=== PATIENT | male | born 1945 | race Caucasian/White ===

== ENCOUNTER → 2017-04-05 | Day surgery (SDC) | payer BC ==
[2017-03-29 11:25] VITALS: BMI 26.0
[~2017-04-05] VITALS: Ht 177.8 cm; Wt 81.8 kg
[~2017-04-05] MED LIST: B-COTAB18 PO; FINA5TAB PO; LIDOCAINE HCL 2% 2 ML VIAL (20MG/ML) ONE; LOSA25TA18 PO; MIDAZOLAM HCL 1 MG/ML 2ML VIAL ONE; MULT-610 PO; PRLSR20 PO; PROPOFOL IV EMULSION 10 MG/ML 20 ML VIAL IV ONE; RANI150T3 PO; VTMD1000 PO
[2017-04-05 09:34] VITALS: Ht 177.8 cm; Wt 81.8 kg
--- NOTE | 2017-04-05 09:35 | Endo History and Physical ---
History & Physical Date of Service: April 05, 2017. Chief Complaint: Meier's Esophagus Referring Physician: Dr. Sanchez History of Present Illness 71 yo CM who presents for EGD secondary to Meier's Esophagus. Past Medical History Reflux, Cancer, Hypertension Past Surgical History Hx Cardiac Surgery: No Hx Internal Defibrillator: No Hx Pacemaker: No Hx Abdominal Surgery: No Hx of Implantable Prosthesis: No Hx Post-Op Nausea and Vomiting: No Hx Cancer Surgery: Yes (MOHS ON CHEEK, BCC ON NECK EXCISION) Hx Thoracic Surgery: No Hx Orthopedic: No Hx Urinary Tract Surgery: No Family History None Social History Smoking Status: Former Smoker Hx Substance Use: No Hx Alcohol Use: Yes ("SOCIALLY") Allergies Coded Allergies: Erythromycin (Verified Allergy, Unknown, SWOLLEN LIVER, 04/05/17) Milk (Verified Allergy, Unknown, LACTOSE INTOLERANT, 04/05/17) Current Medications Reported Home Medications Medications Dose Route/Sig Max Daily Dose Days Date Category Vitamin B Complex (B-Complex Vitamins) 1 Tab Tab 1 Tab PO QAM 03/29/17 Reported Vitamin D3 (Cholecalciferol) 1,000 Inter.unit Tab 1 Tab PO QAM 03/29/17 Reported Centrum Adults (Multiple Vitamins W/ Minerals) 1 Tab Tab 1 Tab PO QAM 03/29/17 Reported Cozaar (Losartan Potassium) 25 Mg Tab 25 Mg PO QAM 03/29/17 Reported Prilosec (Omeprazole) 20 Mg Capcr 40 Mg PO QAM 03/29/17 Reported Proscar (Finasteride) 5 Mg Tab 5 Mg PO QAM 03/29/17 Reported Vital Signs Weight (Kilograms): 81.82 Height (Feet): 5 Height (Inches): 10 Physical Exam General Appearance: WD/WN, no apparent distress Respiratory/Chest: Auscultation: breath sounds normal Cardiovascular: Heart Auscultation: RRR Abdomen: Bowel Sounds: normal Inspection & Palpation: soft, non-distended, no tenderness, guarding & rebound Assessment and Plan Assessment: 71 yo CM who presents for EGD secondary to Meier's Esophagus. Plan: Proceed with EGD
[2017-04-05 09:46] VITALS: TEMP 36.5
--- NOTE | 2017-04-05 10:14 | Discharge Instructions ---
Endoscopy Patient Instructions Date / Procedure(s) Performed April 05, 2017. Allergy Information Coded Allergies: Erythromycin (Verified Allergy, Unknown, SWOLLEN LIVER, 04/05/17) Milk (Verified Allergy, Unknown, LACTOSE INTOLERANT, 04/05/17) Discharge Date / Findings April 05, 2017. Meier's esophagus s/p biopsies Medication Instructions OK to resume all medications today as prescribed Reported Home Medications Medications Dose Route/Sig Max Daily Dose Days Date Category Vitamin B Complex (B-Complex Vitamins) 1 Tab Tab 1 Tab PO QAM 03/29/17 Reported Vitamin D3 (Cholecalciferol) 1,000 Inter.unit Tab 1 Tab PO QAM 03/29/17 Reported Centrum Adults (Multiple Vitamins W/ Minerals) 1 Tab Tab 1 Tab PO QAM 03/29/17 Reported Cozaar (Losartan Potassium) 25 Mg Tab 25 Mg PO QAM 03/29/17 Reported Prilosec (Omeprazole) 20 Mg Capcr 40 Mg PO QAM 03/29/17 Reported Proscar (Finasteride) 5 Mg Tab 5 Mg PO QAM 03/29/17 Reported Provider Instructions Activity Restrictions - No exercising or heavy lifting for 24 hours. - Do not drink alcohol the day of the procedure. - Do not drive a car or operate machinery until the day after the procedure. - Do not make any important decisions or sign important papers in 24 hours after the procedure. Following Day: - Return to full activity which may include returning to work/school. Diet Start your diet with liquids and light foods (jello, soup, juice, toast). Then eat your usual diet if not nauseated. Treatment For Common After Affects For mild abdominal pain, bloating, or excessive gas: - Rest - Eat lightly - Lie on right side Follow-Up Information Follow-up with Dr. Sanchze as scheduled Anesthesia Information What You Should Know You have had a procedure that required some medicine to reduce anxiety and discomfort. This treatment is called moderate sedation. After receiving the treatment, you may be sleepy, but you will be able to breathe on your own. The effects of the treatment may last for several hours. Follow these instructions along with Activity/Diet recommendations noted above: * Do NOT do anything where dizziness or clumsiness would be dangerous. * Rest quietly at home today, then you can be up and about tomorrow. * Have a responsible person stay with you the rest of today. * You may have had an I.V. today. If so, you may take the dressing off later today. Recommendations Call your doctor if: * Trouble breathing * Continuous vomiting for more than 24 hours * Temperature above 101 degrees * Severe abdominal pain or bloating * Pain not relieved by pain medicine ordered * There is increased drainage or redness from any incision * A large amount of rectal bleeding greater than 2-3 tablespoons. (If you had a polyp/s removed or have hemorrhoids, a small amount of blood - from the rectum is to be expected.) * You have any unanswered questions or concerns. IN THE EVENT OF A SERIOUS EMERGENCY, GO TO THE NEAREST EMERGENCY ROOM Your discharge instructions were prepared by provider Issa Ortiz. Patient Instructions Signature Page Wai Aleman Patient (or Guardian) Signature/Date: I have read and understand the instructions given to me by my caregivers. Caregiver/RN/Doctor Signature/Date: The above-named patient and/or guardian has received patient instructions on this date. + Original Patient Signature Page (only) stays with chart. Please make copy for patient.
--- NOTE | 2017-04-05 10:21 | GI REPORT ---
Procedure Date: 04/05/2017 9:55 AM Procedure: Upper GI endoscopy Indications: Suspected Meier's esophagus Medicines: Monitored Anesthesia Care Complications: No immediate complications. Estimated Blood Loss: Estimated blood loss: none. Procedure: Pre-Anesthesia Assessment: - Prior to the procedure, a History and Physical was performed, and patient medications and allergies were reviewed. The patient's tolerance of previous anesthesia was also reviewed. The risks and benefits of the procedure and the sedation options and risks were discussed with the patient. All questions were answered, and informed consent was obtained. Prior Anticoagulants: The patient has taken no previous anticoagulant or antiplatelet agents. ASA Grade Assessment: II - A patient with mild systemic disease. After reviewing the risks and benefits, the patient was deemed in satisfactory condition to undergo the procedure. After obtaining informed consent, the endoscope was passed under direct vision. Throughout the procedure, the patient's blood pressure, pulse, and oxygen saturations were monitored continuously. The scope was introduced through the mouth, and advanced to the second part of duodenum. The upper GI endoscopy was accomplished without difficulty. The patient tolerated the procedure well. Findings: There were esophageal mucosal changes suspicious for short-segment Meier's esophagus present at the gastroesophageal junction. The maximum longitudinal extent of these mucosal changes was 2 cm in length. Mucosa was biopsied with a cold forceps for histology. One specimen bottle was sent to pathology. The stomach was normal. The examined duodenum was normal. Impression: - Esophageal mucosal changes suspicious for short-segment Meier's esophagus. Biopsied. - Normal stomach. - Normal examined duodenum. Recommendation: - Resume previous diet. - Continue present medications. - Await pathology results. - Return to primary care physician as previously scheduled. Issa Ortiz, DO 04/05/2017 10:20:20 AM This report has been signed electronically. Note Initiated On: 04/05/2017 9:55 AM I attest to the content of the Intraoperative Record and orders documented therein, exceptions below
[2017-04-05 10:36] VITALS: BP 152/86; PULSE 65; O2SAT 97
--- NOTE | 2017-04-05 11:36 | Anesthesiology Progress Note ---
Anesthesia Post Op Note Date & Time April 05, 2017 at 11:36 Vital Signs Pain Intensity: 0 Vital Signs Past 12 Hours Date Time Temp Pulse Resp B/P Pulse Ox O2 Delivery O2 Flow Rate FiO2 04/05/17 10:36 65 18 152/86 97 Room Air 04/05/17 10:25 69 18 137/83 95 Room Air 04/05/17 10:12 76 18 121/83 96 Room Air 04/05/17 09:46 36.5 75 20 187/94 97 Room Air Notes Mental Status: alert / awake / arousable, participated in evaluation Pt Amnestic to Procedure: Yes Nausea / Vomiting: adequately controlled Pain: adequately controlled Airway Patency, RR, SpO2: stable & adequate BP & HR: stable & adequate Hydration State: stable & adequate Anesthetic Complications: no major complications apparent
== END | disposition home or self-care (01) ==
LOC: C.GI 09:14
PROVIDERS: ATTEND Internal Medicine
DX: K22.70 Barrett's esophagus without dysplasia (principal); K21.9 Gastro-esophageal reflux disease without esophagitis; I10 Essential (primary) hypertension; Z87.891 Personal history of nicotine dependence; Z85.828 Personal history of other malignant neoplasm of skin; Z79.899 Other long term (current) drug therapy

== ENCOUNTER 2017-07-01 12:30 | Emergency (ER) | payer BC ==
[~2017-07-01 12:30] MED LIST changes: -LIDOCAINE HCL 2% 2 ML VIAL (20MG/ML) ONE; -MIDAZOLAM HCL 1 MG/ML 2ML VIAL ONE; -PROPOFOL IV EMULSION 10 MG/ML 20 ML VIAL IV ONE; -RANI150T3 PO
[2017-07-01 12:35] VITALS: O2SAT 100
[2017-07-01] MEDS ORDERED: RANI150T3 PO (12:58)
[2017-07-01 13:00] LABS: ISTAT CREATININE 1.5 mg/dl (0.6-1.3); ISTAT HEMOGLOBIN 12.2 g/dl (14.0-18.0); ISTAT IONIZED CALCIUM 1.18 mmol/l (1.12-1.32)
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
[2017-07-01 13:05] VITALS: BP 145/80; PULSE 81; O2SAT 99
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
== END 2017-07-01 13:07 | disposition short-term general hospital (02) ==
LOC: EDBD 12:30 → C.EDB 12:31
DX: S31.109A Unspecified open wound of abdominal wall, unspecified quadrant without penetration into peritoneal cavity, initial encounter (principal); W34.00XA Accidental discharge from unspecified firearms or gun, initial encounter; Y92.019 Unspecified place in single-family (private) house as the place of occurrence of the external cause; K22.70 Barrett's esophagus without dysplasia; K21.9 Gastro-esophageal reflux disease without esophagitis; I10 Essential (primary) hypertension; Z87.891 Personal history of nicotine dependence; Z79.899 Other long term (current) drug therapy

== ENCOUNTER 2018-02-19 12:14 | Emergency (ER) | payer BC ==
[~2018-02-19] VITALS: Ht 177.8 cm; Wt 81.3 kg
[~2018-02-19 12:14] MED LIST changes: -PRLSR20 PO
[2018-02-19 12:18] VITALS: TEMP 36.5; Ht 177.8 cm; Wt 81.3 kg
[2018-02-19] MEDS ORDERED: RANI150T3 PO (12:58)
[2018-02-19] MEDS ORDERED: SODIUM CHLORIDE 0.9% 1000ML 1,000 ML IV STA (13:26)
[2018-02-19] MEDS ORDERED: SODIUM CHLORIDE 0.9% 1000ML 1,000 ML IV ONE (13:26)
[2018-02-19 13:51] LABS: BASO % 0.9 %; BASO ABS # 0.08 K/uL (0-0.2); EOS % 2.1 %; HEMATOCRIT 40.6 % (42-52); HEMOGLOBIN 14.1 g/dL (14.0-18.0); IG# 0.02 K/uL (0.00-0.02); LYMPH ABS # 2.43 K/uL (1.2-3.4); MEAN CELL VOLUME 95.5 fL (80-100); MEAN CORPUSCULAR HEMOGLOBIN 33.2 pg (25-34); MEAN CORPUSCULAR HGB CONC 34.7 g/dl (32-36); MEAN PLATELET VOLUME 10.5 fL (7.4-10.4); MONO % 14.2 %; MONO ABS # 1.33 K/uL (0.11-0.59); NEUT % 56.6 %; NEUT ABS # 5.29 K/uL (1.4-6.5); PLATELET COUNT 283 K/uL (130-400); RED CELL DISTRIBUTION WIDTH CV 14.1 % (11.5-14.5); RED CELL DISTRIBUTION WIDTH SD 48.9 fL (36.4-46.3); WHITE BLOOD COUNT 9.35 K/uL (4.8-10.8)
[2018-02-19 14:02] LABS: PTT PATIENT 25.7 SECONDS (21.0-31.0)
[2018-02-19 14:06] LABS: ALBUMIN 4.3 gm/dl (3.4-5.0); CALCIUM 9.5 mg/dl (8.5-10.1); CREATININE 1.32 mg/dl (0.60-1.40); POTASSIUM 3.7 mmol/L (3.5-5.1)
[2018-02-19 14:09] LABS: TOTAL PROTEIN 8.3 gm/dl (6.4-8.2)
--- NOTE | 2018-02-19 14:09 | DIAGNOSTIC IMAGING REPORT ---
CHEST ONE VIEW PORTABLE CLINICAL HISTORY: CHEST PAIN hypertension COMPARISON STUDY: 07/01/2017 FINDINGS: The bones soft tissues and hemidiaphragms are normal. The cardiomediastinal silhouette is normal. The lungs are clear. The pulmonary vasculature is normal. IMPRESSION: Negative chest. The above report was generated using voice recognition software. It may contain grammatical, syntax or spelling errors. Electronically signed by: Arden Morales M.D. 02/19/2018 2:08 PM Dictated Date/Time: 02/19/2018 2:08 PM
--- NOTE | 2018-02-19 14:15 | DIAGNOSTIC IMAGING REPORT ---
CT SCAN OF THE BRAIN WITHOUT IV CONTRAST CLINICAL HISTORY: Headache. COMPARISON STUDY: No priors. TECHNIQUE: Unenhanced axial CT scan of the brain is performed from the vertex to the skull base. A dose lowering technique was utilized adhering to the principles of ALARA. CT DOSE: 614.27 mGy.cm FINDINGS: Brain parenchyma: There are age-related involutional changes noting mild subcortical and periventricular microangiopathic change. There is no hemorrhage, mass effect, or evidence of acute territorial ischemia by CT criteria. Ornelas-white matter is preserved. No extra-axial fluid collection is seen. Ventricles, sulci, cisterns: Prominent secondary to involutional change. Intracranial vasculature: There is mild atherosclerotic calcification of the cavernous carotid arteries. Calvarium: Unremarkable. Sinuses and mastoids: The visualized paranasal sinuses are clear. The mastoid air cells are well pneumatized. Orbits: The bony orbits are grossly intact. IMPRESSION: There is no hemorrhage, mass effect, or evidence of acute territorial ischemia by CT criteria. Electronically signed by: Brice Concepcion M.D. 02/19/2018 2:14 PM Dictated Date/Time: 02/19/2018 2:12 PM
[2018-02-19] MEDS ORDERED: PRLSR20 PO (14:32)
[2018-02-19 16:16] VITALS: BP 173/95; PULSE 77; O2SAT 96
--- NOTE | 2018-02-19 18:47 | EMERGENCY ROOM VISIT NOTE ---
History Report prepared by Zo: Peter Toledo Under the Supervision of: Dr. Sage Perry M.D. First contact with patient: 13:17 Chief Complaint: HYPERTENSION Stated Complaint: HIGH BLOOD PRESSURE History of Present Illness The patient is a 72 year old male who presents to the Emergency Room with complaints of a headache that woke hip up in the middle of the night this morning, several hours ago. He also complains of a persistent cough for the past week. He can feel his nose draining down the back of his throat and his throat was sore this morning. The patient mentioned that he visited with another physician who found his blood pressure to be hypertensive as well. He did not take his blood pressure medication this morning. The added that he was complaining of nausea as well, which is why he did not take the blood pressure pill. His headache was worsened by light. Source of History: patient Onset: Several hours ago Position: head Quality: other (KNOWLES) Modifying Factors (Worsening): other (Light sensitivity) Associated Symptoms: + sorethroat, + cough Review of Systems See HPI for pertinent positives & negatives. A total of 10 systems reviewed and were otherwise negative. 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 Nurse's notes were reviewed and I agree with. Family History Omitted secondary to age. Social History Smoking Status: Never Smoker Drug Use: none Marital Status: Housing Status: lives with significant other Occupation Status: retired Current/Historical Medications Scheduled B-Complex Vitamins (Vitamin B Complex), 1 TAB PO QAM Cholecalciferol (Vitamin D3), 1 TAB PO QAM Finasteride (Proscar), 5 MG PO QAM Losartan Potassium (Cozaar), 25 MG PO QAM Multiple Vitamins W/ Minerals (Centrum Adults), 1 TAB PO QAM Omeprazole (Prilosec), 20 MG PO DAILY Scheduled PRN Ranitidine Hcl (Zantac), 150 MG PO BID PRN for heartburn Allergies Coded Allergies: Erythromycin (Verified Allergy, Unknown, SWOLLEN LIVER, 02/19/18) Milk (Verified Allergy, Unknown, LACTOSE INTOLERANT, 02/19/18) Physical Exam Vital Signs Date Time Temp Pulse Resp B/P (MAP) Pulse Ox O2 Delivery O2 Flow Rate FiO2 02/19/18 16:16 77 18 173/95 96 Room Air 02/19/18 14:39 81 18 186/104 96 Room Air 02/19/18 13:12 83 20 180/103 97 Room Air 02/19/18 12:18 36.5 85 18 221/99 99 Room Air Physical Exam General: Non-ill appearing older male in no acute distress. HEENT: Normal cephalic atraumatic. Pupils are equal round and reactive to light. Extraocular movements are intact. Oropharynx is pink with moist mucous membranes. No swelling of the mouth lips or tongue. Neck: Supple with a midline trachea. No meningeal signs or stiffness, no JVD or bruits. No Stridor. Chest: Clear to auscultation bilaterally. No wheezes or rhonchi. No increased work of breathing. Heart: regular rate and rhythm. Abdomen: Soft nontender, nondistended without rebound guarding or rigidity. Extremities: No cyanosis clubbing or edema. No calf tenderness or assymetry Spine/Back. Non tender to palpation. No CVA tenderness Skin: Good turgor without rashes. Neurologic exam: Cranial nerves two through 12 are intact. Motor and sensation are intact and symmetrical throughout. Medical Decision & Procedures ER Provider Diagnostic Interpretation: Radiology results as stated below per my review and radiologist interpretation: CHEST ONE VIEW PORTABLE CLINICAL HISTORY: CHEST PAIN hypertension COMPARISON STUDY: 07/01/2017 FINDINGS: The bones soft tissues and hemidiaphragms are normal. The cardiomediastinal silhouette is normal. The lungs are clear. The pulmonary vasculature is normal. IMPRESSION: Negative chest. The above report was generated using voice recognition software. It may contain grammatical, syntax or spelling errors. Electronically signed by: Arden Morales M.D. 02/19/2018 2:08 PM Dictated Date/Time: 02/19/2018 2:[address] SCAN OF THE BRAIN WITHOUT IV CONTRAST CLINICAL HISTORY: Headache. COMPARISON STUDY: No priors. TECHNIQUE: Unenhanced axial CT scan of the brain is performed from the vertex to the skull base. A dose lowering technique was utilized adhering to the principles of ALARA. CT DOSE: 614.27 mGy.cm FINDINGS: Brain parenchyma: There are age-related involutional changes noting mild subcortical and periventricular microangiopathic change. There is no hemorrhage, mass effect, or evidence of acute territorial ischemia by CT criteria. Ornelas-white matter is preserved. No extra-axial fluid collection is seen. Ventricles, sulci, cisterns: Prominent secondary to involutional change. Intracranial vasculature: There is mild atherosclerotic calcification of the cavernous carotid arteries. Calvarium: Unremarkable. Sinuses and mastoids: The visualized paranasal sinuses are clear. The mastoid air cells are well pneumatized. Orbits: The bony orbits are grossly intact. IMPRESSION: There is no hemorrhage, mass effect, or evidence of acute territorial ischemia by CT criteria. Electronically signed by: Brice Concepcion M.D. 02/19/2018 2:14 PM Dictated Date/Time: 02/19/2018 2:12 PM Laboratory Results 02/19/18 13:34 Red Blood Count 4.25, Mean Corpuscular Volume 95.5, Mean Corpuscular Hemoglobin 33.2, Mean Corpuscular Hemoglobin Concent 34.7, Mean Platelet Volume 10.5, Neutrophils (%) (Auto) 56.6, Lymphocytes (%) (Auto) 26.0, Monocytes (%) (Auto) 14.2, Eosinophils (%) (Auto) 2.1, Basophils (%) (Auto) 0.9, Neutrophils # (Auto ) 5.29, Lymphocytes # (Auto) 2.43, Monocytes # (Auto) 1.33, Eosinophils # (Auto ) 0.20, Basophils # (Auto) 0.08 02/19/18 13:34 Test 02/19/18 13:34 White Blood Count 9.35 K/uL (4.8-10.8) Red Blood Count 4.25 M/uL (4.7-6.1) Hemoglobin 14.1 g/dL (14.0-18.0) Hematocrit 40.6 % (42-52) Mean Corpuscular Volume 95.5 fL (80-100) Mean Corpuscular Hemoglobin 33.2 pg (25-34) Mean Corpuscular Hemoglobin Concent 34.7 g/dl (32-36) Platelet Count 283 K/uL (130-400) Mean Platelet Volume 10.5 fL (7.4-10.4) Neutrophils (%) (Auto) 56.6 % Lymphocytes (%) (Auto) 26.0 % Monocytes (%) (Auto) 14.2 % Eosinophils (%) (Auto) 2.1 % Basophils (%) (Auto) 0.9 % Neutrophils # (Auto) 5.29 K/uL (1.4-6.5) Lymphocytes # (Auto) 2.43 K/uL (1.2-3.4) Monocytes # (Auto) 1.33 K/uL (0.11-0.59) Eosinophils # (Auto) 0.20 K/uL (0-0.5) Basophils # (Auto) 0.08 K/uL (0-0.2) RDW Standard Deviation 48.9 fL (36.4-46.3) RDW Coefficient of Variation 14.1 % (11.5-14.5) Immature Granulocyte % (Auto) 0.2 % Immature Granulocyte # (Auto) 0.02 K/uL (0.00-0.02) Prothrombin Time 10.7 SECONDS (9.0-12.0) Prothromb Time International Ratio 1.0 (0.9-1.1) Activated Partial Thromboplast Time 25.7 SECONDS (21.0-31.0) Partial Thromboplastin Ratio 1.0 Anion Gap 7.0 mmol/L (3-11) Est Creatinine Clear Calc Drug Dose 53.0 ml/min Estimated GFR () 62.5 Estimated GFR (Non- 53.9 BUN/Creatinine Ratio 14.9 (10-20) Calcium Level 9.5 mg/dl (8.5-10.1) Total Bilirubin 1.1 mg/dl (0.2-1) Direct Bilirubin 0.2 mg/dl (0-0.2) Aspartate Amino Transf (AST/SGOT) 21 U/L (15-37) Alanine Aminotransferase (ALT/SGPT) 18 U/L (12-78) Alkaline Phosphatase 117 U/L (45-117) Total Protein 8.3 gm/dl (6.4-8.2) Albumin 4.3 gm/dl (3.4-5.0) Lipase 78 U/L (73-393) Laboratory studies as stated above per my review. Medications Administered Medications (Trade) Dose Ordered Sig/Gabrielle Route Start Time Stop Time Status Last Admin Dose Admin Sodium Chloride 1,000 ml @ 999 mls/hr Q1H1M STAT IV 02/19/18 13:26 02/19/18 14:26 DC 02/19/18 13:57 999 MLS/HR ECG Per My Interpretation Rate (beats per minute): 79 Rhythm: normal sinus Findings: other (No MELANI/STD, No PVCs) Comparison ECG Date: 07/15/2010 Change: no significant change ED Course 1318: Past medical records reviewed. The patient was evaluated in room C11B, and a complete history and physical examination were performed. 1326: Ordered Sodium Chloride 1000 mL @ 150 mL/hr IV, Sodium Chloride 1000 mL @ 999 mL/hr IV. 1617: Upon reevaluation, the patient is resting in bed. I discussed the results and treatment plan with him and his family. They verbalized agreement of the treatment plan. The patient was discharged home. Medical Decision Differential diagnosis includes; hypertension, CVA, intracranial hemorrhage, electrolyte or metabolic abnormality. This patient comes in as described above. He was placed in room C 11. he had a bad headache last night .he is asymptomatic at present. he did not yet take his blood pressure medicine today. He's had no chest pain or shortness of breath. He looks well and has no complaints at present EKG was obtained shows no acute ischemic changes. He has no electrolyte or metabolic abnormality is nothing to suggest infection. I get a CAT scan of his head is unremarkable. His blood pressure is trending downward to the 180 systolic. he has not yet taken his medications. he can take this when he gets home. He should check his blood pressure frequently and follow-up with his doctor this week for recheck return if: Worsening of symptoms, numbness or weakness, fever orchills, any new problems or concerns. He is happy to plan and discharged to home. Medication Reconcilliation Current Medication List: was personally reviewed by me Blood Pressure Screening Patient's blood pressure: Elevated blood pressure Blood pressure disposition: Referred to PCP Impression Primary Impression: Headache Additional Impression: Hypertension Scribe Attestation The scribe's documentation has been prepared under my direction and personally reviewed by me in its entirety. I confirm that the note above accurately reflects all work, treatment, procedures, and medical decision making performed by me. Departure Information Dispostion Home / Self-Care Referrals No Doctor, Assigned (PCP) Forms HOME CARE DOCUMENTATION FORM, IMPORTANT VISIT INFORMATION, WORK / SCHOOL INSTRUCTIONS Patient Instructions My [facility] Additional Instructions REst Take your blood pressure meds when your get home REturn if: worsening of symptoms, headache, numbness or weakness, chest pain, fever, any new problems or concerns Problem Qualifiers
== END 2018-02-19 16:17 | disposition home or self-care (01) ==
LOC: C.EDB 12:16 → C.EDC 16:17
DX: R51 Headache (principal); I10 Essential (primary) hypertension; R05 Cough; R11.0 Nausea; K21.9 Gastro-esophageal reflux disease without esophagitis; K22.70 Barrett's esophagus without dysplasia; Z88.1 Allergy status to other antibiotic agents; Z91.011 Allergy to milk products

== ENCOUNTER → 2018-03-29 | Outpatient (CLI) | payer BC ==
[~2018-03-29] MED LIST changes: +PRLSR20 PO; +RANI150T3 PO
--- NOTE | 2018-03-29 10:41 | DIAGNOSTIC IMAGING REPORT ---
(BARIUM SWALLOW) ESOPHAGUS CLINICAL HISTORY: R13.14 Dysphagia, pharyngoesophageal [id number] MALE WITHdysphagia COMPARISON STUDY: None FLUOROSCOPY TIME: 1 minute. FINDINGS: Patient initiated swallowing function well. There is no evidence for aspiration. Esophagus is normal in course and caliber. There is moderate gastroesophageal reflux to the mid thoracic esophagus. Gastroesophageal junction is unremarkable. IMPRESSION: Moderate gastroesophageal reflux to the midthoracic esophagus. Otherwise negative study. The above report was generated using voice recognition software. It may contain grammatical, syntax or spelling errors. Electronically signed by: Arden Morales M.D. 03/29/2018 10:39 AM Dictated Date/Time: 03/29/2018 10:38 AM
== END | disposition home or self-care (01) ==
LOC: C.RAD 09:45
DX: R13.14 Dysphagia, pharyngoesophageal phase (principal); K21.9 Gastro-esophageal reflux disease without esophagitis

== ENCOUNTER → 2018-07-18 | Outpatient (CLI) | payer BC ==
--- NOTE | 2018-07-18 17:03 | ECHOCARDIOGRAM REPORT ---
*NOTICE TO RECEIVING [employer] This information is strictly Confidential and protected under [place] law. [place] law prohibits you from making any further disclosure of this information unless further disclosure is expressly permitted by the written consent of the person to whom it pertains or is authorized by law. A general authorization for the release of medical or other information is not sufficient for this purpose. Hospital accepts no responsibility if the information is made available to any other person, INCLUDING THE PATIENT. Interpretation Summary * Name: XIMENA HERNANDEZ Study Date: 07/18/2018 01:31 PM BP: 130/72 mmHg * Patient Location: [facility] HR: 84 * : 1945 (M/d/yyyy) Gender: Male Height: 70 in * Age: 73 yrs Ethnicity: [place] Weight: 180 lb * Ordering Physician: Bucky Sanchez * Referring Physician: Bucky Sanchez * Performed By: Kris Glimore [facility] * * Reason For Study: Murmur, Aortic Valve Dz * BSA: 2.0 m2 * -- Conclusions -- * 1. Normal LV size. Mild concentric LVH. * 2. LVEF 60-65%. No regional wall motion abnormalities. * 3. Normal RV size and function. * 4. [id number] aortic regurgitation. Aortic valve sclerosis without stenosis * 5. Normal estimated PA and RA pressures. * 6. Borderline dilated ascending aorta (3.9 cm). * 7. Compared with prior study on 05/18/2010: AI has progressed, now [id number]. Procedure Details * A complete two-dimensional transthoracic echocardiogram was performed (2D, M-mode, Doppler and color flow Doppler). Left Ventricle * The left ventricle is grossly normal size. * There is borderline concentric left ventricular hypertrophy. * Ejection Fraction = 60-65%. * No regional wall motion abnormalities noted. Right Ventricle * The right ventricle is grossly normal size. * The right ventricular systolic function is normal as assessed by tricuspid annular plane systolic excursion (TAPSE) (normal >1.5 cm). Atria * The left atrial size is normal. * Right atrial size is normal. * No ASD detected; PFO is not assessed. Mitral Valve * The mitral valve is grossly normal. * There is no mitral valve stenosis. * There is trace mitral regurgitation. Tricuspid Valve * The tricuspid valve is not well visualized, but is grossly normal. * There is trace tricuspid regurgitation. * Right ventricular systolic pressure is normal. Aortic Valve * The aortic valve is trileaflet. * Aortic valve sclerosis mild, without significant aortic valvular stenosis. * No hemodynamically significant valvular aortic stenosis. * Mild to moderate aortic regurgitation. Pulmonic Valve * The pulmonary valve is inadequately visualized, but the Doppler data is adequate for interpretation. Great Vessels * Borderline dilated ascending aorta. Pericardium/Pleural * There is no pericardial effusion. Great Vessels * Normal inferior vena cava size and collapsability with sniff indicates a normal right atrial pressure of 3 mmHg Left Ventricular Diastolic Function * Grade I diastolic dysfunction, (abnormal relaxation pattern). MMode 2D Measurements and Calculations IVSd 1.2 cm IVSs 1.3 cm LVIDd 5.0 cm LVIDs 3.4 cm LVPWd 1.1 cm LVPWs 1.3 cm IVS/LVPW 1.1 FS 32.5 % EDV(Teich) 120.2 ml ESV(Teich) 47.4 ml EF(Teich) 60.5 % EDV(cubed) 127.6 ml ESV(cubed) 39.3 ml EF(cubed) 69.2 % % IVS thick 9.4 % % LVPW thick 20.7 % LV mass(C)d 222.6 grams LV mass(C)dI 111.5 grams/m\S\2 LV mass(C)s 151.1 grams LV mass(C)sI 75.7 grams/m\S\2 SV(Teich) 72.8 ml SI(Teich) 36.5 ml/m\S\2 SV(cubed) 88.4 ml SI(cubed) 44.3 ml/m\S\2 Ao root diam 3.5 cm Ao root area 9.7 cm\S\2 ACS 2.2 cm LA dimension 3.9 cm asc Aorta Diam 3.7 cm LA/Ao 1.1 EDV(MOD-sp4) 97.0 ml ESV(MOD-sp4) 40.0 ml EF(MOD-sp4) 58.8 % EDV(MOD-sp2) 92.0 ml ESV(MOD-sp2) 42.0 ml EF(MOD-sp2) 54.3 % SV(MOD-sp4) 57.0 ml SI(MOD-sp4) 28.6 ml/m\S\2 SV(MOD-sp2) 50.0 ml SI(MOD-sp2) 25.1 ml/m\S\2 Doppler Measurements and Calculations MV E max harshal 78.2 cm/sec MV A max harshal 98.1 cm/sec MV E/A 0.80 MV P1/2t max harshal 85.4 cm/sec MV P1/2t 68.5 msec MVA(P1/2t) 3.2 cm\S\2 MV dec slope 365.1 cm/sec\S\2 MV dec time 0.27 sec Ao V2 max 183.6 cm/sec Ao max PG 13.5 mmHg Ao max PG (full) 9.1 mmHg AI max harshal 461.6 cm/sec AI max PG 85.3 mmHg AI dec slope 287.3 cm/sec\S\2 AI P1/2t 470.7 msec LV V1 max PG 4.4 mmHg LV V1 max 104.8 cm/sec PA V2 max 91.5 cm/sec PA max PG 3.4 mmHg TR max harshal 230.4 cm/sec
== END | disposition home or self-care (01) ==
LOC: C.CPL 13:27
PROVIDERS: ATTEND Family Medicine
DX: I35.8 Other nonrheumatic aortic valve disorders (principal)